=== PATIENT | male | born 1960 | race Caucasian/White ===

== ENCOUNTER 2020-06-23 10:39 | Emergency (ER) | payer OTHER ==
[~2020-06-23] VITALS: Ht 157.5 cm; Wt 77.0 kg
[2020-06-23] MEDS ORDERED: DIPH25CA83 MT (11:14)
[2020-06-23] MEDS ORDERED: TC1U15 TP (11:14)
[2020-06-23 11:58] VITALS: BP 127/55
== END 2020-06-23 11:58 | disposition home or self-care (01) ==
LOC: ER 10:39
DX: L40.9 Psoriasis, unspecified (principal)
CPT/HCPCS: 99283